=== PATIENT | male | born 1980 | race Caucasian/White ===

== ENCOUNTER 2017-09-21 05:11 | Emergency (ER) | payer SELFPAY ==
[~2017-09-21] VITALS: Ht 177.8 cm; Wt 109.1 kg
[2017-09-21 05:14] VITALS: TEMP 97.7
[2017-09-21 05:52] LABS: BASO % 0.5 % (0.0-2.0); EOS # 0.1 (0.0-0.7); EOS % 1.6 % (0-4.0); GRAN # 5.7 (1.4-6.5); GRAN % 66.3 % (42.2-75.2); HEMATOCRIT 46.2 % (42.0-52.0); HEMOGLOBIN 16.5 g/dl (13.5-18.0); LYMPH # 1.9 (1.2-3.4); LYMPH % 22.2 % (20.0-51.0); MEAN CELL VOLUME 92 fl (80.0-100.0); MEAN CORPUSCULAR HEMOGLOBIN 33 pg (27.0-31.0); MEAN CORPUSCULAR HGB CONC 36 g/dl (33.0-37.0); MEAN PLATELET VOLUME 9.3 fl (7.4-10.4); MONO # 0.8 (0.1-0.6); MONO % 9.2 % (1.7-9.3); PLATELET COUNT 262 K/mm3 (130-400); RED BLOOD COUNT 5.04 M/mm3 (4.20-5.60); REDCELL DISTRIBUTION WIDTH-CV 11.9 % (11.5-14.5)
[2017-09-21 06:04] LABS: C-REACTIVE PROTEIN 1.2 mg/dL (0.0-0.9); CREATININE, serum 1.29 mg/dL (0.66-1.25); POTASSIUM 3.7 mmol/L (3.4-5.0)
[2017-09-21] MEDS ORDERED: PREDNISONE10 MG PO (06:53)
[2017-09-21] MEDS ORDERED: NORCO 325 MG-51 TAB PO (06:54)
[2017-09-21 07:11] VITALS: BP 156/100; PULSE 83
== END 2017-09-21 07:11 | disposition home or self-care (01) ==
LOC: COL.ER 05:11
PROVIDERS: Emergency Medicine
DX: M19.072 Primary osteoarthritis, left ankle and foot (principal); M10.9 Gout, unspecified
CPT/HCPCS: J1170; J1885